=== PATIENT | male | born 1945 | race Caucasian/White ===

== ENCOUNTER 2021-05-24 09:15 | Emergency (ER) | payer OTHER ==
[2021-05-24 09:30] VITALS: BP 169/107; BMI 25.1
[2021-05-24 09:32] VITALS: PULSE 72; TEMP 98.4
[2021-05-24 10:56] LABS: BASO % 0.7 % (0-2.0); EOS % 1.2 % (0-4.5); HEMATOCRIT 38.8 % (35.4-49); HEMOGLOBIN 13.8 GM/dL (11.7-16.9); MCH 32.6 pg (25.7-33.7); MCHC 35.5 g/dl (32.0-35.9); MEAN CELL VOLUME 91.7 fl (80-96); MEAN PLT VOLUME 10.2 fl (7.5-11.1); MONO % 6.7 % (3.8-10.2); NEUT % 69.4 % (42.8-82.8); PLATELET COUNT 150 10^3/uL (134-434); RBC 4.23 M/mm3 (4.00-5.60); RDW 13.3 % (11.9-15.9); WHITE BLOOD COUNT 5.7 K/mm3 (4.0-10.0)
[2021-05-24 11:23] LABS: CALCIUM 9.2 mg/dL (8.5-10.1)
[2021-05-24 11:24] LABS: ALBUMIN 3.7 g/dl (3.4-5.0); MAGNESIUM 2.4 mg/dL (1.8-2.4)
[2021-05-24 11:28] LABS: CREATININE 1.2 mg/dL (0.55-1.3)
[2021-05-24 11:29] LABS: BILIRUBIN,TOTAL 0.6 mg/dL (0.2-1); TOT PROT 7.6 g/dl (6.4-8.2)
== END 2021-05-24 15:06 | disposition home or self-care (01) ==
LOC: JER 09:15
DX: R10.9 Unspecified abdominal pain (principal)
CPT/HCPCS: 36415; 71260-TC; 74177-TC; 80053; 83735; 84439; 84443; 85025; 93005; 93010; 99285-25; Q9967